=== PATIENT | female | born 1975 | race Two or more races ===

== ENCOUNTER 2017-07-20 14:37 | Emergency (ER) | payer MEDICAID, OTHER ==
[~2017-07-20] VITALS: Ht 165.1 cm; Wt 65.8 kg
[2017-07-20 14:47] VITALS: BP 157/102
== END 2017-07-20 15:25 | disposition home or self-care (01) ==
LOC: ER 14:37
DX: S16.1XXA Strain of muscle, fascia and tendon at neck level, initial encounter (principal); S39.012A Strain of muscle, fascia and tendon of lower back, initial encounter; V49.19XA Passenger injured in collision with other motor vehicles in nontraffic accident, initial encounter; Y93.89 Activity, other specified; Y92.410 Unspecified street and highway as the place of occurrence of the external cause; Y99.8 Other external cause status